=== PATIENT | female | born 1985 | race Caucasian/White ===

== ENCOUNTER → 2016-07-25 | Outpatient (CLI) | payer BC ==
[2016-07-25 11:45] LABS: BASO % 0.6 % (0.0-1.0); EOS # 0.1 K/mm3 (0.0-0.50); EOS % 1.1 % (0.0-3.0); LARGE UNSTAINED CELL # 0.1 K/mm3 (0.0-0.4); LARGE UNSTAINED CELL % 1.9 % (0.0-4.0); LYMPH # 1.6 K/mm3 (1.5-4.5); LYMPH % 31.1 % (24.0-44.0); MEAN CORPUSCULAR HEMOGLOBIN 34.2 pg (27.0-33.0); MEAN CORPUSCULAR HGB CONC 35.3 g/dl (32.0-36.5); MEAN CORPUSCULAR VOLUME 96.8 fl (80.0-96.0); MONO # 0.4 K/mm3 (0.0-0.8); MONO % 7.8 % (0.0-5.0); NEUTROPHILS # 2.8 K/mm3 (1.8-7.7); NEUTROPHILS % 57.5 % (36.0-66.0); PLATELET COUNT, AUTOMATED 174 k/mm3 (150-450); RED CELL DISTRIBUTION WIDTH 12.4 % (11.5-14.5); WHITE BLOOD COUNT 4.9 K/mm3 (4.0-10.0)
[2016-07-25 12:42] LABS: HBsAg Prenatal NEGATIVE (NEGATIVE)
== END ==
LOC: M SMT 08:07
PROVIDERS: ATTEND Obstetrics & Gynecology
DX: Z34.81 Encounter for supervision of other normal pregnancy, first trimester (principal)

== ENCOUNTER → 2016-10-24 | Outpatient (CLI) | payer BC ==
--- NOTE | 2016-10-24 11:30 | REP ---
Obstetric ultrasound for anatomy: There is a single intrauterine gestation in a vertex presentation. There is motion and cardiac activity. The heart rate is 153 beats per minute. The placenta is anterior. There is no previa or abruptio. The placenta demonstrates grade 0 maturity. The amniotic fluid volume subjectively is normal. The cervix is 3.3 cm in length. The maternal adnexa and cul-de-sac are unremarkable. By the ultrasound today the gestational age is 18-week 6 days with an AARON of 03/21/2017. Gestational age by LMP is 18 weeks 2 days. weight is 255 grams (0 pounds, 8 ounces). This is the 63rd percentile for 18 weeks 2 days. The following anatomic structures are identified and are unremarkable: Intracranial lateral ventricles, cranium, cavum septum pellucidum, cerebellum, cisterna magna, facial profile, lungs, four-chamber heart, cardiac right and left outflow tracts, diaphragm, stomach, cord insertion, three-vessel cord, kidneys, bladder, spine and upper lower extremities. There are bilateral choroid plexus cysts measuring 4.1 mm on one side and 3.9 ml on the other side. Impression: Bilateral choroid plexus cysts. Otherwise, there are no anomalies. Signed by Orlando Bbab MD 10/24/2016 11:21 A
== END ==
LOC: M SMT 08:53
PROVIDERS: ATTEND Obstetrics & Gynecology
DX: Z36 Encounter for antenatal screening of mother (principal); Z3A.18 18 weeks gestation of pregnancy